=== PATIENT | male | born 1990 | race Caucasian/White ===

== ENCOUNTER 2018-05-06 17:47 | Emergency (ER) | payer MEDICAID ==
[~2018-05-06] VITALS: Ht 172.7 cm; Wt 77.1 kg
[2018-05-06] MEDS ORDERED: CEPH-264 PO (18:47)
--- NOTE | 2018-05-06 18:47 | PHYS DOC ---
Past Medical History Past Medical History: Anxiety, Depression, Seizure Additional Past Medical Histor: PTSD Past Surgical History: No Surgical History Alcohol Use: None Drug Use: None Adult General Chief Complaint Chief Complaint: SKIN RASH/ABSCESS HPI HPI Patient is a 28 year old male who presents with sliced his right index finger on the metal part of the bed of a truck yesterday. Patient states he went to [facility] together but today he woke up and it was feeling swollen and slightly reddened and he states that he opened it a bit and it drained some purulent drainage out of it. Patient denies fever. Patient states they did not give him a tetanus shot yesterday. Review of Systems Review of Systems Constitutional: Denies fever or chills [] Eyes: Denies change in visual acuity, redness, or eye pain [] HENT: Denies nasal congestion or sore throat [] Respiratory: Denies cough or shortness of breath [] Cardiovascular: No additional information not addressed in HPI [] GI: Denies abdominal pain, nausea, vomiting, bloody stools or diarrhea [] : Denies dysuria or hematuria [] Musculoskeletal: Denies back pain or joint pain [] Integument: Right index finger laceration that is glued together by [facility] yesterday. Denies rash or skin lesions [] Neurologic: Denies headache, focal weakness or sensory changes [] Endocrine: Denies polyuria or polydipsia [] All other systems were reviewed and found to be within normal limits, except as documented in this note. Current Medications Current Medications Current Medications Medications (Trade) Dose Ordered Sig/Shashi Start Time Stop Time Status Last Admin Dose Admin Diphtheria/ Tetanus/Acell Pertussis (Boostrix) 0.5 ml ONCE ONCE 05/06/18 19:30 05/06/18 19:30 DC 05/06/18 19:14 0.5 ML Allergies Allergies Allergies Coded Allergies Type Severity Reaction Last Updated Verified risperidone Allergy Intermediate 05/06/18 Yes Physical Exam Physical Exam Constitutional: Well developed, well nourished, no acute distress, non-toxic appearance. [] HENT: Normocephalic, atraumatic, bilateral external ears normal, oropharynx moist, no oral exudates, nose normal. [] Eyes: PERRLA, EOMI, conjunctiva normal, no discharge. [] Neck: Normal range of motion, no tenderness, supple, no stridor. [] Cardiovascular:Heart rate regular rhythm, no murmur [] Lungs & Thorax: Bilateral breath sounds clear to auscultation [] Abdomen: Bowel sounds normal, soft, no tenderness, no masses, no pulsatile masses. [] Skin: Right index finger laceration that is derma bonded together and slightly swollen around laceration site but no drainage seen. Warm, dry, no erythema, no rash. [] Back: No tenderness, no CVA tenderness. [] Extremities: No tenderness, no cyanosis, no clubbing, ROM intact, no edema. [] Neurologic: Alert and oriented X 3, normal motor function, normal sensory function, no focal deficits noted. [] Psychologic: Affect normal, judgement normal, mood normal. [] Current Patient Data Vital Signs Vital Signs Date Time Temp Pulse Resp B/P (MAP) Pulse Ox O2 Delivery O2 Flow Rate FiO2 05/06/18 19:19 98.6 76 16 122/82 (95) 98 Room Air 98.6 EKG EKG [] Radiology/Procedures Radiology/Procedures Right hand Impressions: no acute findings and read by Dr Tsai Course & Med Decision Making Course & Med Decision Making Patient is a 28 year old male who presents with 2 cm lacerated his right index finger on the metal part of the bed of a truck yesterday. Patient states he went to [facility] together but today he woke up and it was feeling swollen and slightly reddened and he states that he opened it a bit and it drained some purulent drainage out of it. Patient denies fever. Patient states they did not give him a tetanus shot yesterday. The laceration to his right index finger is closed with glue but slightly open side. It is painful to touch but the thumb is not swollen or reddened. I do not currently see any purulent drainage from it. Patient can bend the finger and there is a present radial pulse and cap refill is less than 3 seconds. Rates his pain at a 5-6 states he has not taken anything for pain. Skin is pink warm and dry. Patient is afebrile. She denies any nausea or vomiting. Patient is given a Boostrix and no x-ray the finger because he states they did not x-ray his finger yesterday. Xray shows no acute findings. I will give the patient a Keflex antibiotic to start taking since wound was draining this morning. Patient should follow-up with his primary care within 48 hours and return to the ED within 48 hours for wound check. Staff Physician Addendum: I was working in the ER during the course of this patient's visit. I was available for consultation as needed, but I was not directly involved in the care of this patient. [] Dragon Disclaimer Dragon Disclaimer This electronic medical record was generated, in whole or in part, using a voice recognition dictation system. Departure Departure Impression: Primary Impression: Wound infection following procedure Disposition: HOME, SELF-CARE Condition: STABLE Referrals: NO PCP (PCP) Patient Instructions: Wound Infection Additional Instructions: Primary care return to the ED within 48 hours for a wound check. Take medications as prescribed. Scripts Cephalexin (KEFLEX) 500 Mg Capsule 1 CAP PO BID, #14 CAP Prov: ANNMARIE GAVIRIA APRN 05/06/18 ANNMARIE GAVIRIA APRN May 06, 2018 18:47 ELPIDIO TSAI MD May 06, 2018 22:28
[2018-05-06 19:19] VITALS: BP 122/82
[2018-05-06] MEDS ORDERED: DIPHTH,PERTUSS(ACELL),TET TOX 0.5 ML DISP.SYRIN. VAX IM ONE (19:30)
--- NOTE | 2018-05-06 22:37 | RAD ---
Right hand x-rays 3 views HISTORY: Laceration right second digit. FINDINGS: There is a small bone-like linear density at the radial aspect second MCP joint could be a small chip fracture from the base of the second proximal phalanx at the MCP joint given the presence of a linear lucency although a small foreign body is also a possibility. Remainder of the hand is intact. IMPRESSION: Small density could be a chip fracture or foreign body base of the second proximal phalanx as described above.. Electronically signed by: Mack Villarreal MD (05/06/2018 10:34 PM) [facility] [id number]
== END 2018-05-06 19:24 | disposition home or self-care (01) ==
LOC: ER 17:47
DX: T81.49XA Infection following a procedure, other surgical site, initial encounter (principal); Z88.8 Allergy status to other drugs, medicaments and biological substances; Y84.8 Other medical procedures as the cause of abnormal reaction of the patient, or of later complication, without mention of misadventure at the time of the procedure; Y92.89 Other specified places as the place of occurrence of the external cause
CPT/HCPCS: 73130; 90471; 90715; 99284-25